=== PATIENT | female | born 1980 | race Caucasian/White ===

== ENCOUNTER 2016-09-20 18:13 | Emergency (ER) | payer OTHER ==
[2016-09-20 18:55] LABS: BASOPHILS 0.7 % (0.0-2.0); EOSINOPHILS 0.3 % (0.0-6.0); HEMATOCRIT 47.8 % (36.0-48.0); HEMOGLOBIN 16.5 g/dL (12.0-16.0); LYMPHOCYTES 23.8 % (20.0-40.0); LYMPHOCYTES# 1.1 X 10^3uL (0.8-3.8); MEAN CELL VOLUME 97.6 fL (80.0-100.0); MEAN CORPUS. HGB CONCENTRATION 34.4 g/dL (32.0-36.0); MEAN CORPUSCULAR HEMOGLOBIN 33.6 pg (29.0-35.0); MEAN PLATELET VOLUME 7.1 fL (7.4-10.4); MONOCYTES 7.3 % (2.0-10.0); MONOCYTES# 0.3 X 10^3uL (0.2-1.0); NEUTROPHILS 67.9 % (54.0-75.0); NEUTROPHILS# 3.1 X 10^3uL (2.6-6.7); PLATELET COUNT 153 X 10^3uL (130-440); RED CELL DISTRIBUTION WIDTH 15.6 % (11.5-14.5); WHITE BLOOD COUNT 4.5 X 10^3uL (3.9-10.7)
[2016-09-20] MEDS ORDERED: THIAMINE HCL 200 MG/2 ML VIAL ONE (19:02)
[2016-09-20] MEDS ORDERED: MULTIVITAMINS 10 ML VIAL IV ONE (19:02)
[2016-09-20] MEDS ORDERED: NORMAL SALINE 1,000 ML IV ONE (19:02)
[2016-09-20] MEDS ORDERED: MAGNESIUM SULFATE 1 GM/2 ML VIAL ONE (19:02)
[2016-09-20 19:04] LABS: ALBUMIN 4.4 g/dL (3.5-5.0); ALKALINE PHOSPHATASE 179 U/L (38-126); ALT 180 U/L (9-52); AST 436 U/L (14-36); BILIRUBIN, DIRECT 0.4 mg/dL (0.0-0.4); BILIRUBIN, TOTAL 1.1 mg/dL (0.2-1.3); BLOOD UREA NITROGEN 4 mg/dL (7-17); CALCIUM 8.7 mg/dL (8.4-10.2); CHLORIDE 101 mmol/L (98-107); CREATININE 0.8 mg/dL (0.5-1.0); EST GLOMERULAR FILTRATION RATE > 60 mL/min; GLUCOSE 168 mg/dL (70-100); LIPASE 843 U/L (23-300); MAGNESIUM 1.9 mg/dL (1.6-2.3); POTASSIUM 3.4 mmol/L (3.5-5.1); SODIUM 144 mmol/L (137-145); TOTAL PROTEIN 7.8 g/dL (6.3-8.2)
[2016-09-20 19:15] LABS: ETHYL ALCOHOL 490 mg/dL (<10)
[2016-09-20] MEDS ORDERED: POTASSIUM EFF 25 MEQ TABLET ONE (20:31)
--- NOTE | 2016-09-21 06:45 | ER NURSING DOCUMENTATION ---
Nurse's Notes [facility] Name:Georgia Fink Age:36 yrs Sex:Female :1980 Arrival Date:09/20/2016 Time:18:13 Bed5 Private MD:No PCP, Identified Diagnosis:Alcohol Abuse;Alcoholic Fatty Liver;Pancreatitis, Acute;Potassium Deficiency (Hypokalemia) Presentation: 09/20 18:18 Presenting complaint: Patient states: Denied admission to [place] due to ETOH lp intoxication. Transition of care: Home. 18:18 Method Of Arrival: Private Vehicle lp 18:18 Acuity: TRAVIS 3 lp Triage Assessment: 18:20 General: Appears slender, Behavior is drowsy, Smells of alcohol. Pain: Denies pain. lp EENT: No deficits noted. Neuro: Level of Consciousness is lethargic, obeys commands, Oriented to person, place, time, event, Slow due to intoxication. Cardiovascular: No deficits noted. Respiratory: No deficits noted. GI: No deficits noted. : No deficits noted. Derm: No deficits noted. Musculoskeletal: No deficits noted. Historical: - Allergies: No known drug Allergies; - Home Meds: 1. None - PMHx: endometriosis; ALCOHOLISM; - PSHx: IVF; Endometriosis ; - Tetanus: < 10 years. - Ebola Screening: : Patient negative for fever greater than or equal to 101.5 degrees Fahrenheit, and additional compatible Ebola Virus Disease symptoms. Patient denies exposure to infectious person. Patient denies travel to an Ebola-affected area in the 21 days before illness onset. . - Immunization history: Flu Vaccine None. - Social history: Smoking status: unknown if patient ever smoked tobacco. Screenin:22 Infectious Disease Risk None. Abuse screen: Denies threats or abuse. Denies injuries lp from another. Nutritional screening: No deficits noted. Suicide Risk Assessment: Suicidal Thinking Present - No ( 0 points), Past Attempts - No (0 points). Assessment: 18:22 See Triage Assessment done by same RN. lp 19:23 Reassessment: pt pulled iv out. IV restarted in left ac.. lb 09/21 01:07 Reassessment: pt sleeping when checked. resp easy. will continue to monitor. lb 03:20 Reassessment: pt awake, alert, steady on her feet. no tremors noted.. lb 06:00 Reassessment: awaiting transport to [place]. no change, sleeping. taking fluids and lb tolerating. Vital Signs: 09/20 18:21 BP 133 / 94; Pulse 93; Resp 16; Temp 97.3(O); Pulse Ox 93% on R/A; Weight 53.52 kg; lp Height 5 ft. 7 in. (170.18 cm); Pain 0/10; 18:44 Pulse Ox 87% on R/A; lp 18:44 Pulse Ox 96% on 2 lpm NC; lp 20:39 BP 121 / 79; Pulse 100; Resp 16; Pulse Ox 95% on R/A; lb 09/21 01:06 BP 137 / 94; Pulse 62; Resp 14; Pulse Ox 97% on R/A; lb 03:20 BP 138 / 94; Pulse 80; Resp 16; Pulse Ox 96% ; Pain 0/10; lb 06:42 BP 130 / 86; Pulse 78; Resp 14; Pulse Ox 96% on R/A; lb 09/20 18:21 Body Mass Index 18.48 (53.52 kg, 170.18 cm) lp ED Course: 09/20 18:14 Patient arrived in ED. ds 18:14 No PCP, Identified is Private Physician. ds 18:17 Kee Ledezma MD is Attending Physician. sc 18:18 Elham Guzman, ALLEN is Primary Nurse. lp 18:19 Triage completed. lp 18:[address] Ledezma notified. lp 18:23 Valuables Remains with patient Patient has correct armband on for positive lp identification. Bed in low position. Call light in reach. Side rails up X2. 18:36 Inserted peripheral IV: 20 gauge in right antecubital area and blood collected. lp 19:24 Inserted peripheral IV: 20 gauge in left antecubital area. lb Administered Medications: 19:05 Drug: Banana Bag - (NS 0.9% 1000 ml, folic acid 600 mcg, Thiamine 100 mg, Multivitamin lb 10 ml, Magnesium Sulfate 1 grams); Route: IV; Rate: calculated rate; Site: right antecubital; 20:17 Follow up: IV Status: Completed infusion; IV Intake: 1000ml lb 20:39 Drug: K-Lyte Effervescent Tablet 50 mEq; Route: PO; lb 21:34 Follow up: Response: No adverse reaction lb Intake: 20:17 IV: 1000ml; Total: 1000ml. lb Outcome: 19:32 Discharge ordered by MD. wallace 09/21 03:27 Report given to Elaine VILLA at [facility] 06:42 Discharged to [facility] 06:42 Condition: stable 06:42 Discharge Assessment: Patient awake, alert and oriented x 3. No cognitive and/or functional deficits noted. Patient verbalized understanding of disposition instructions. 06:42 Instructed on discharge instructions. 06:42 IV D/Taz 06:43 Patient left the ED. lb Signatures: Elham Guzman, RN RN lp Srot, Juanita, Reg Reg ds Kee Ledezma MD MD ia Ashley Moses
--- NOTE | 2016-09-21 06:45 | ER PHYSICIAN DOCUMENTATION ---
Physician Documentation [facility] Name:Georgia Fink Age:36 yrs Sex:Female :1980 Arrival Date:09/20/2016 Time:18:13 Bed5 Private MD:No PCP, Identified ED Kee Jasmine Disposition: 09/20/16 19:32 Discharged to [place]. Impression: Alcohol Abuse, Alcoholic Fatty Liver, Pancreatitis, Acute, Potassium Deficiency (Hypokalemia). - Condition is Serious. - Discharge Instructions: CIRRHOSIS, HYPOKALEMIA, Abuse, Alcohol - ALCOHOL INTOXICATION, Acute Pancreatitis - Lipase. - Medical Reconciliation form form. - Follow up: Private Physician; When: Tomorrow; Reason: Continuance of care. - Problem is an ongoing problem. - Symptoms have improved. HPI: 09/20 19:25 This 36 yrs old Female presents to ER via Private Vehicle with complaints of sc ETOH Abuse. 19:25 The patient presents to the emergency department with a history of substance abuse, sc Type: vodka, the amount of abuse is unknown. Onset: The symptom(s)/episode began/occurred at an unknown time. Past psychiatric history: the patient has a previous inpatient psychiatric history. Associated signs and symptoms: The patient has no apparent associated signs or symptoms. The patient has experienced similar episodes in the past, chronically. The patient has been recently seen by a physician: 3 week(s) ago, alcoholic cirrhosis and pancreatitis. Historical: - Allergies: No known drug Allergies; - Home Meds: 1. None - PMHx: endometriosis; ALCOHOLISM; - PSHx: IVF; Endometriosis ; - Tetanus: < 10 years. - Ebola Screening: : Patient negative for fever greater than or equal to 101.5 degrees Fahrenheit, and additional compatible Ebola Virus Disease symptoms. Patient denies exposure to infectious person. Patient denies travel to an Ebola-affected area in the 21 days before illness onset. . - Immunization history: Flu Vaccine None. - Social history: Smoking status: unknown if patient ever smoked tobacco. ROS: 19:28 Constitutional: Negative for fever, chills, and weight loss. sc Eyes: Negative for injury, pain, redness, and discharge. ENT: Negative for injury, pain, and discharge. Neck: Negative for injury, pain, and swelling. Cardiovascular: Negative for chest pain, palpitations, and edema. Respiratory: Negative for shortness of breath, cough, wheezing, and pleuritic chest pain. Abdomen/GI: Negative for abdominal pain, nausea, vomiting, diarrhea, and constipation. Back: Negative for injury and pain. MS/Extremity: Negative for injury and deformity. Skin: Negative for injury, rash, and discoloration. 19:28 Neuro: Negative for headache, weakness, numbness, tingling, and seizure. sc 19:33 Psych: Positive for alcohol dependence. sc Exam: Constitutional: This is a well developed, well nourished patient who is awake, alert, and in no acute distress. Head/Face: Normocephalic, atraumatic. Eyes: Pupils equal round and reactive to light, extra-ocular motions intact. Lids and lashes normal. Conjunctiva and sclera are non-icteric and not injected. Cornea within normal limits. Periorbital areas with no swelling, redness, or edema. ENT: Nares patent. No nasal discharge, no septal abnormalities noted. Tympanic membranes are normal and external auditory canals are clear. Oropharynx with no redness, swelling, or masses, exudates, or evidence of obstruction, uvula midline. Mucous membranes moist. Neck: Trachea midline, no thyromegaly or masses palpated, and no cervical lymphadenopathy. Supple, full range of motion without nuchal rigidity, or vertebral point tenderness. No meningismus. Chest/axilla: Normal chest wall appearance and motion. Nontender with no deformity. No lesions are appreciated. Cardiovascular: Regular rate and rhythm with a normal S1 and S2. No gallops, murmurs, or rubs. Normal PMI, no JVD. No pulse deficits. Respiratory: Lungs have equal breath sounds bilaterally, clear to auscultation and percussion. No rales, rhonchi or wheezes noted. No increased work of breathing, no retractions or nasal flaring. Back: No spinal tenderness. No costovertebral tenderness. Full range of motion. Skin: Warm, dry with normal turgor. Normal color with no rashes, no lesions, and no evidence of cellulitis. 19:29 Neuro: Awake and alert, GCS 15, oriented to person, place, time, and situation. sc Cranial nerves II-XII grossly intact. Motor strength 5/5 in all extremities. Sensory grossly intact. Cerebellar exam normal. Normal gait. 19:29 Abdomen/GI: Inspection: abdomen appears normal, Bowel sounds: normal, Palpation: abdomen is soft and non-tender, Liver: is firm. 19:32 Psych: Behavior/mood is pleasant, Affect is calm, flat, Oriented to person, place, sc time, Patient has no thoughts/intents to harm self or others. Judgement / Insight is impaired. Vital Signs: 18:21 BP 133 / 94; Pulse 93; Resp 16; Temp 97.3(O); Pulse Ox 93% on R/A; Weight 53.52 kg; lp Height 5 ft. 7 in. (170.18 cm); Pain 0/10; 18:44 Pulse Ox 87% on R/A; lp 18:44 Pulse Ox 96% on 2 lpm NC; lp 20:39 BP 121 / 79; Pulse 100; Resp 16; Pulse Ox 95% on R/A; lb 04 01:06 BP 137 / 94; Pulse 62; Resp 14; Pulse Ox 97% on R/A; lb 03:20 BP 138 / 94; Pulse 80; Resp 16; Pulse Ox 96% ; Pain 0/10; lb 06:42 BP 130 / 86; Pulse 78; Resp 14; Pulse Ox 96% on R/A; lb 09/20 18:21 Body Mass Index 18.48 (53.52 kg, 170.18 cm) lp MDM: 09/20 18:34 Patient medically screened. me 19:29 Differential diagnosis: alcohol abuse, liver and pancreas dz. Data reviewed: vital sc signs, nurses notes, lab test result(s), and as a result, I will continue to observe the patient, administer IV fluids, administer potassium. Counseling: I had a detailed discussion with the patient and/or guardian regarding: the historical points, exam findings, and any diagnostic results supporting the discharge/admit diagnosis, lab results, the need for outpatient follow up. 09/20 18:56 Order name: CBC AUTO DIF, MDIF/RMOR IF IND EDSC 09/20 19:09 Interpretation: Normal. me 09/20 19:09 Order name: BASIC METABOLIC PANEL; Complete Time: 19:24 EDMS 09/20 19:23 Interpretation: Normal Except: POTASSIUM 3.4. me 09/20 19:09 Order name: MAGNESIUM; Complete Time: 19:24 EDMS 09/20 19:23 Interpretation: Normal. me 09/20 19:09 Order name: HEPATIC PANEL; Complete Time: 19:24 EDSC 09/20 19:24 Interpretation: Abnormal: ALT 180; ALKALINE PHOSPHATASE 179; AST 436. me 09/20 19:09 Order name: LIPASE; Complete Time: 19:24 EDMS 09/20 19:24 Interpretation: Abnormal: LIPASE 843. me 09/20 19:10 Order name: HCG, SERUM; Complete Time: 19:24 EDSC 09/20 19:24 Interpretation: Normal. me 09/20 19:16 Order name: ETHYL ALCOHOL; Complete Time: 19:24 EDMS 09/20 19:24 Interpretation: Abnormal: ETHYL ALCOHOL 490. me 09/20 18:44 Order name: I & O; Complete Time: 18:50 me 09/20 18:44 Order name: NPO; Complete Time: 18:50 me 09/20 18:44 Order name: Pulse Ox Continuous; Complete Time: 18:50 sc Dispensed Medications: 19:05 Drug: Banana Bag - (NS 0.9% 1000 ml, folic acid 600 mcg, Thiamine 100 mg, Multivitamin lb 10 ml, Magnesium Sulfate 1 grams); Route: IV; Rate: calculated rate; Site: right antecubital; 20:17 Follow up: IV Status: Completed infusion; IV Intake: 1000ml lb 20:39 Drug: K-Lyte Effervescent Tablet 50 mEq; Route: PO; lb 21:34 Follow up: Response: No adverse reaction lb Signatures: Elham Guzman RN RN lp Chew, Scott, MD MD sc Bollock, Lynda lb
== END 2016-09-21 06:44 ==
LOC: ER 18:13 → EEVIPCON 18:13 → ER 09-21 06:44
DX: F10.229 Alcohol dependence with intoxication, unspecified (principal); K70.0 Alcoholic fatty liver; K85.20 Alcohol induced acute pancreatitis without necrosis or infection; E87.6 Hypokalemia
CPT/HCPCS: 80048; 80076; 80320; 83690; 83735; 84703; 85025; 96365; 99284; J3475; J7030